=== PATIENT | male | born 2000 | race Caucasian/White ===

== ENCOUNTER 2022-08-30 01:10 | Emergency (ER) | payer OTHER ==
[~2022-08-30] VITALS: Ht 172.7 cm; Wt 74.8 kg
[2022-08-30 01:10] VITALS: BP 150/81
--- NOTE | 2022-08-30 01:18 | NUR ---
PT BIB [facility], PREBOOK. TAKEN TO CHAIR C
[2022-08-30 01:30] VITALS: BP 150/81
--- NOTE | 2022-08-30 01:30 | NUR ---
PATIENT BIB [facility] POLICE DEPT. PATIENT EXAMINED BY DR. ANGELO. PATIENT MEDICALLY CLEARED AND RELEASED IN CUSTODY IN STABLE CONDITION. ORIGINAL PRE-BOOK FORM GIVEN TO OFFICER MADELYN [id number]. Patient discharged with v/s stable. Written and verbal after care instructions given and explained. Patient verbalized understanding. Police with in custody. All questions addressed prior to discharge. Advised to follow up with PMD.
== END 2022-08-30 01:30 ==
LOC: MED 01:10
DX: Z02.89 Encounter for other administrative examinations (principal); V49.88XA Car occupant (driver) (passenger) injured in other specified transport accidents, initial encounter; Y93.89 Activity, other specified; Y92.89 Other specified places as the place of occurrence of the external cause; Y99.8 Other external cause status
CPT/HCPCS: 99283